=== PATIENT | female | born 1985 | race African-American/Black ===

== ENCOUNTER 2016-07-10 12:30 | Inpatient (IN) | payer MEDICAID, OTHER ==
[~2016-07-10] VITALS: Ht 170.2 cm; Wt 92.6 kg
[~2016-07-10 12:30] MED LIST: LEVE-5 PO
[2016-07-10 12:45] VITALS: Ht 170.2 cm; Wt 92.6 kg
[2016-07-10 12:46] VITALS: BP 130/62; PULSE 127; RESP 19
[2016-07-10] MEDS ORDERED: AL HYDROX/MG HYDROX/SIMETH 30 ML CUP PO ONE (13:00)
[2016-07-10 13:25] LABS: ADD SCAN DIFF NO
[2016-07-10 13:38] LABS: BASOPHIL # 0.1 10^3/ul (0.0-0.1); BASOPHILS % 0.5 % (0.0-2.0); EOSINOPHILS # 1.2 10^3/ul (0.0-0.5); EOSINOPHILS % 7.5 % (0.0-7.0); HEMATOCRIT 36.1 % (37.0-47.0); HEMOGLOBIN 11.8 g/dl (12.0-16.0); LYMPHOCYTES # 1.9 10^3/ul (0.8-2.9); LYMPHOCYTES % 12.4 % (15.0-51.0); MEAN CORPUSCULAR HEMOGLOBIN 28.9 pg (29.0-33.0); MEAN CORPUSCULAR HGB CONC 32.7 g/dl (32.0-37.0); MEAN CORPUSCULAR VOLUME 88.3 fl (82.0-101.0); MEAN PLATELET VOLUME 11.8 fl (7.4-10.4); MONOCYTE # 0.8 10^3/ul (0.3-0.9); MONOCYTES % 5.1 % (0.0-11.0); NEUTROPHIL # 11.3 10^3/ul (1.6-7.5); NEUTROPHILS % 74.1 % (39.0-77.0); PLATELET COUNT 225 10^3/UL (140-415); RED BLOOD COUNT 4.09 10^6/ul (4.20-5.40); WHITE BLOOD COUNT 15.3 10^3/ul (4.8-10.8)
[2016-07-10 14:03] LABS: ADD UMIC YES; URINE COLOR YELLOW (YELLOW)
[2016-07-10 14:04] LABS: URINE BILIRUBIN (Dip) 1+ (NEGATIVE); URINE BLOOD (Dip) TRACE (NEGATIVE); URINE GLUCOSE (Dip) NEGATIVE (NEGATIVE); URINE KETONES (Dip) NEGATIVE (NEGATIVE); URINE LEUKOCYTE ESTERASE (Dip) 2+ (NEGATIVE); URINE NITRITE (Dip) NEGATIVE (NEGATIVE); URINE TOTAL PROTEIN (Dip) 1+ (NEGATIVE); URINE UROBILINOGEN (Dip) 0.2 E.U./dL (0.1-1.0)
[2016-07-10 14:17] LABS: BACTERIA,URINE MODERATE; ICTOTEST NEGATIVE (NEGATIVE)
[2016-07-10 14:20] LABS: ALBUMIN 3.5 g/dl (3.3-4.9); ALBUMIN/GLOBULIN RATIO 0.94; BILIRUBIN,INDIRECT 0.4 mg/dl (0-1.1); BILIRUBIN,TOTAL 0.4 mg/dl (0.2-1.3); CALCIUM 9.3 mg/dl (8.4-10.2); CREATININE 0.57 mg/dl (0.44-1.00); POTASSIUM 3.9 mmol/L (3.5-5.1); TOTAL PROTEIN 7.2 g/dl (6.1-8.1)
--- NOTE | 2016-07-10 14:26 | RADRPT ---
PROCEDURE: OB ultrasound for biophysical profile CLINICAL INDICATION: Biophysical profile. . TECHNIQUE: Multiple sonographic images of the pelvis were obtained. Transabdominal view of the gr avid uterus are available for review. The images were reviewed on a PACS workstation. COMPARISON: None FINDINGS: Single intrauterine gestation. Presentation: Cephalic. Partially visualized placenta: Anterior. breathing movement = 2/2 tone = 2/2 motion = 2/2 BREANNE = 2/2 BREANNE = 15.7 cm heart rate: 132 beats per minute IMPRESSION: Single intrauterine gestation. Biophysical profile 11/04 RPTAT: AADD .Lukasz Calzada MD, MD Date Time Electronically viewed and signed by .Lukasz Calzada MD, on 07/10/2016 14:26 .B/
--- NOTE | 2016-07-10 14:28 | RADRPT ---
PROCEDURE: Obstetrical ultrasound CLINICAL INDICATION: , abdominal pain TECHNIQUE: Love-scale sonographic images of the cervix. Transvaginal scanning was performed. COMPARISON: None. FINDINGS: Funneling of the internal cervical os; cervical length of 0.99 cm as visualized transvaginally. IMPRESSION: Funneling of the internal cervical os; cervical length of 0.99 cm as visualized transvaginally. RPTAT: AADD .Lukasz Calzada MD, MD Date Time Electronically viewed and signed by .Lukasz Calzada MD, on 07/10/2016 14:28 .B/
[2016-07-10] MEDS ORDERED: MAGNESIUM SULFATE 20 GM/500 ML 500 ML IV SCH (14:57)
[2016-07-10] MEDS ORDERED: MAGNESIUM SULFATE 4 GM/100 ML 100 ML IV ONE (15:00)
[2016-07-10] MEDS ORDERED: MAGNESIUM SULFATE 4 GM/100 ML 100 ML ONE (15:02)
[2016-07-10] MEDS: LACTATED RINGER'S 1,000 ML IV SCH (15:30)
--- NOTE | 2016-07-10 15:52 | RADRPT ---
PROCEDURE: US OB. CLINICAL INDICATION: Size and dates TECHNIQUE: Multiple sonographic images of the pelvis and gravid uterus were obtained. The images were reviewed on a PACS workstation. COMPARISON: 07/10/16 FINDINGS: There is a single viable intrauterine gestation. Cardiac activity is present with 129 beats per min gurmeet. There is a vertex presentation. The placenta is anterior. There is no evidence for an abruption or placenta previa. There is a normal amount of amniotic fluid with an BREANNE = 15.7 cm. Measurements were made in order to determine age. The results are as follows: BPD =8.7 cm HC =31.3 cm AC =32.2 cm FL =6.9 cm Estimated gestational age of approximately 35 weeks and 3 days based on ultrasound measurements. Clinical age: 33 weeks and 1 day. The estimated date of delivery is 08/11/16, based on ultrasound measurements. The EFW = 2752 g, >97%, based on LMP age. RPTAT: AA IMPRESSION: Single viable intrauterine gestation of approximately 35 weeks and 3 days based on ultrasound measu rements. Larger than clinical age by 2 weeks. .Miles Mandel MD, Date Time Electronically viewed and signed by .Miles Mandel MD, on 07/10/2016 15:51 .S/
[2016-07-10] MEDS: BETAMET NA PHOS/AC(6 MG/ML) 5ML INJ IM SCH (16:48)
[2016-07-10] MEDS ORDERED: MEPERIDINE 25 MG INJ ONE (17:31)
[2016-07-10] MEDS: MEPERIDINE 25 MG INJ IV PRN ×2 (17:44→22:12)
[2016-07-10] MEDS ORDERED: ONDANSETRON 4 MG INJ IV PRN (18:00)
--- NOTE | 2016-07-10 18:35 | RADRPT ---
PROCEDURE: US Abdomen (right upper quadrant). CLINICAL INDICATION: Right upper quadrant abdomen pain. TECHNIQUE: Multiple real-time longitudinal and transverse images of the right upper quadrant of th e abdomen were acquired utilizing a curved array transducer. Images were reviewed on a high-resoluti on PACS workstation. COMPARISON: None FINDINGS: The liver is normal in size and echogenicity. There is no focal hepatic lesion. Gallstones are present in the gallbladder. There is no gallbladder wall thickening and there is no fluid around the gallbladder. The bile ducts are normal with the common bile duct measuring 5.7 mm in diameter. The pancreas appears enlarged. The visualized portions of the pancreas are otherwise unremarkable w ith obscuration of the tail of the pancreas. No free fluid is present. The right kidney measures 8.6 cm. There is normal echogenicity of the right kidney. There is no p erinephric fluid collection. No hydronephrosis, mass, or calculus is seen. IMPRESSION: 1. Gallstones in the gallbladder. No evidence of cholecystitis. 2. Enlarged pancreas. This may indicate pancreatitis. Clinical correlation advised. 3. Otherwise normal right upper quadrant abdomen ultrasound. RPTAT: QQ .Jeison Cross MD, MD Date Time Electronically viewed and signed by .Jeison Cross MD, on 07/10/2016 18:35 .R/
[2016-07-10] MEDS ORDERED: LEVETIRACETAM 750 MG TAB PO SCH (21:00)
[2016-07-11] MEDS: LACTATED RINGER'S 1,000 ML IV SCH ×4 (00:13→21:05)
[2016-07-11] MEDS: MAGNESIUM SULFATE 20 GM/500 ML 500 ML IV SCH ×3 (00:15→18:39)
[2016-07-11] MEDS: MEPERIDINE 25 MG INJ IV PRN ×2 (03:23→18:30)
[2016-07-11] MEDS: MULTIVIT/MIN/FOLATE/IRON/PREN TAB PO SCH (09:08)
[2016-07-11] MEDS: FERROUS SULFATE (EC) 325 MG TAB PO SCH (09:08)
[2016-07-11] MEDS: LEVETIRACETAM 750 MG TAB PO SCH ×2 (09:34→21:05)
[2016-07-11] MEDS: DOCUSATE SODIUM 100 MG CAP PO SCH (09:34)
[2016-07-11 10:19] LABS: ALBUMIN 3.7 g/dl (3.3-4.9); ALBUMIN/GLOBULIN RATIO 1.02; BILIRUBIN,INDIRECT 0.1 mg/dl (0-1.1); BILIRUBIN,TOTAL 0.1 mg/dl (0.2-1.3); CALCIUM 7.5 mg/dl (8.4-10.2); CREATININE 0.56 mg/dl (0.44-1.00); POTASSIUM 4.6 mmol/L (3.5-5.1); TOTAL PROTEIN 7.3 g/dl (6.1-8.1)
--- NOTE | 2016-07-11 14:01 | PERINOTE ---
Date/Time of Note Date/Time of Note DATE: 07/11/16 TIME: 13:49 Assessment/Recommendations Assessment: labor Other Assessments Gallstone pancreatitis Short cervix Seizure disorder IUP with decreased heart rate variability, likely due to Magnesium use Recommendations: Would continue this patient NPO until seen by general surgery and then until the stone in the duct has passed. Could then slowly increase diet and D/C home when able to eat. --If the patient is NPO for more than 5 days, would consider hyperalimentation due to state --Would continue Keppra for seizure disease --If discharged home would place the patient on modified bedrest due to the short cervix OB Subjective Free Text/Dictaton Patient admitted for abdominal pain. Evaluation reveals contractions with a short cervix. Patient also with gallstones and elevated amylase and lipase, consistent with gallstone pancreatitis. Patient gives a history of a seizure disorder on Keppra. She states that the last seizure was earlier this year. HD# 2 IUP @ 33W2D Complaints/Overnight events Pain is decreased. Amylase is lower on repeat determination. Current Medications Current Medications Lactated Ringer's (Lr) 1,000 ml @ 62.5 mls/hr Q16H IV Last administered on 00:22; Admin Dose 62.5 MLS/HR; Start 07/10/16 at 14:57 Betamethasone Acet/Betameth SodPhos (Celestone Soluspan) 12 mg Q24H IM Last administered on 07/10/16 16:48; Admin Dose 12 MG; Start 07/10/16 at 15:00; Stop 07/11/16 at 15:01 Prenat Multivit/ Rainbow/Iron/Folic Ac ( S) 1 tab DAILY PO Last administered on 07/11/16 09:08; Admin Dose 1 TAB; Start 07/11/16 at 09:00 Ferrous Sulfate (Ferrous Sulfate (Ec)) 325 mg DAILY PO Last administered on 09:08; Admin Dose 325 MG; Start 07/11/16 at 09:00 Docusate Sodium (Colace) 100 mg DAILY PO Last administered on 07/11/16 09:34; Admin Dose 100 MG; Start 07/11/16 at 09:00 Meperidine HCl (Demerol) 25 mg Q4H PRN IV PAIN Last administered on 07/11/16 03:23; Admin Dose 25 MG; Start 07/10/16 at 17:30 Ondansetron HCl 4 mg 4 mg Q6H PRN IV NAUSEA AND/OR VOMITING Last administered on 07/10/16 18:15; Admin Dose 4 MG; Start 07/10/16 at 18:00 Magnesium Sulfate (Magnesium Sulfate 20 Gm/500 ml) 500 ml @ 62.5 mls/hr Q8H IV Last administered on 07/11/16 09:13; Admin Dose 62.5 MLS/HR; Start 07/11/16 at 00:04 Levetiracetam (Keppra) 1,500 mg BID PO Last administered on 07/11/16 09:34; Admin Dose 1,500 MG; Start 07/11/16 at 09:00 Past Medical History Medical History: other (Seizure Disorder) Surgical History: no surgical history 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 No loss of fluid or blood vaginally. No dysuria) OB Admission Exam Physical Exam Vitals: Vital Signs Date Time Temp Pulse Resp B/P Pulse Ox O2 Delivery O2 Flow Rate FiO2 07/10/16 12:46 98.0 127 19 130/62 99 Room Air 07/11/16 120 135/65 Heart: Rhythm Normal Lungs: Clear Abdomen: WNL Heart Rate: 120's Accelerations: Accelerations Present Decelerations: No Decelerations Varibility: Minimum Last 72 hours Lab Results CBC & BMP 07/10/16 12:35 07/10/16 13:02 07/11/16 05:39 Liver Function Test 07/10/16 12:35 07/11/16 05:39 Alanine Aminotransferase (ALT/SGPT) 21 34 Albumin 3.5 3.7 Alkaline Phosphatase 95 135 H Aspartate Amino Transf (AST/SGOT) 32 93 H Direct Bilirubin 0.00 0.00 Total Protein 7.2 7.3 Magnesium Level Test 07/10/16 19:40 07/11/16 00:30 07/11/16 05:39 07/11/16 09:30 Magnesium Level 5.0 H 5.9 *H 6.9 *H 6.8 *H Test 07/11/16 11:54 Magnesium Level 6.7 *H Ultrasound Results Cervical Length 1cm by transvaginal ultrasound. I have reviewed the images and concur SONIDO DWYER MD Jul 11, 2016 14:00
--- NOTE | 2016-07-11 15:01 | HP ---
DATE OF ADMISSION: 07/10/2016 CHIEF COMPLAINT: Epigastric pain. HISTORY: A 31-year-old female, 1, para 0, with an estimated date of delivery of 08/27/2016, at 33+ weeks' gestation, who presented with complaints of epigastric pain. PAST MEDICAL HISTORY: Epilepsy. PAST SURGICAL HISTORY: Unremarkable. ALLERGIES: NO KNOWN ALLERGIES. FAMILY HISTORY: Hypertension. PHYSICAL EXAMINATION: VITAL SIGNS: Patient is afebrile. Vital signs stable. HEAD, NECK AND CHEST: Examination within normal limits. ABDOMEN: Soft, gravid. Slight tenderness in the epigastric area. EXTREMITIES: Within normal limits. NEUROLOGIC: Within normal limits. HOSPITAL COURSE: The patient had a workup, including blood work, obstetrical ultrasound and abdominal ultrasound. The results of the blood work revealed amylase and lipase to be elevated. Obstetrical ultrasound revealed a short cervix. Abdominal ultrasound revealed enlargement of the pancreas and gallstones. IMPRESSION: 1. at 33+ weeks. 2. Short cervix. 3. Threatened labor. 4. Gallstone pancreatitis. PLAN: Admit. N.p.o., IV hydration, intravenous magnesium sulfate for tocolysis and intramuscular betamethasone for lung maturity. Surgical consult. Gastroenterology consult. Perinatology consult. Neonatology consult. Dictated By: LANNY DE LUNA/GAMA Conf#: [id number] DID#: [id number] MTDD
--- NOTE | 2016-07-11 15:01 | CONS ---
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 She is a 31-year-old -[place], 1, para 0. She had prenat al care at [facility] with Dr. Gillette and denies history of significant problems durin g . Her labs are unremarkable. She has been given 1 dose of betamethasone and the second one is due today. Estimated weight is 2720 grams. I have spoken to the mother and explained to her about prematurity with 33 to 34 weeks' gestational age, respiratory distress, oxygen therapy and respiratory support with bubble CPAP and ventilator, a pnea of prematurity, jaundice and phototherapy, feeding problems and survival greater than 99%, and general procedures done in NICU, and general treatment plan. I have also discussed about delayed mi lestones and risk for long-term neurodevelopmental problems in view of prematurity and answered moth er's questions and addressed her concerns. Mom seems to understand the problems with prematurity an d had appropriate questions. I thank you very much for allowing me to take part in the care of this patient. We will attend the delivery and follow the baby as needed. Dictated By: DIO JONES/NTS Conf#: [id number] DID#: [id number]
[2016-07-11] MEDS ORDERED: SOD CHLORIDE 0.9% 1,000 ML IV ONE (16:00)
[2016-07-11] MEDS: BETAMET NA PHOS/AC(6 MG/ML) 5ML INJ IM SCH (17:00)
--- NOTE | 2016-07-11 17:06 | CONS ---
[facility] INITIAL INPATIENT CONSULTATION NOTE DATE OF CONSULTATION: 07/11/2016 PLACE OF SERVICE: [facility] labor and delivery, second floor. ASSESSMENT AND PLAN: A very pleasant 31-year-old young lady with her first child, presenting with a history of seizures as well as a comorbidity of BMI of 32, who now has gallstone pancreatitis which was on a moderate to severe grade on the very chemistries, but has shown significant improvement over a 24 hour period with bowel rest. This is all very encouraging and at the moment, I do not see any indication for acute surgical intervention. I have suggested that we do an MRCP to further evaluate her intrahepatic biliary tree and if she has evidence for retained stones within the common bile duct, she may need consideration for ERCP. I also strongly suggest that we involve our gastroenterology colleagues to complete the team and to watch the patient carefully in house until her symptoms have abated and her values and labs have normalized. Once the patient is able to eat well and has no other further pain and we have demonstrated that we have very low likelihood to no likelihood of having cholelithiasis, then the patient may be discharged home. I also recommended that the patient undergo an elective laparoscopic cholecystectomy in 1 to 2 months after the of her child to decrease her risk of recurrent gallstone pancreatitis from approximately 30% in the next 6 months to normal risk almost 0% after this operation. I explained all this to the patient as well as her significant other and her mother, and answered all their questions to the best of my ability. The patient and family appeared to understand and agree with the plan. With above assessment, I recommend the followin. Continue current care with n.p.o. status and careful monitoring in house. 2. Strict I's and O's. 3. Check labs in a.m. 4. MRCP. 5. Gastroenterology consultation. Thank you again for allowing us to participate in the care of this very pleasant lady and her wonderful family. If there are any questions, please feel free to contact me at [phone]. TOTAL VISIT TIME: Was 45 minutes, of which more than half was spent in face-to- face discussion with the patient, discussions with his family, as well as coordination of care between multiple physicians and providers. UPDATED CLINICAL SUMMARY: Patient is a very pleasant 31-year-old lady on her first and with comorbidity of BMI 32, presenting with severe gallstone pancreatitis. COMORBIDITIES: 1. BMI of 32.0. 2. with her first child approximately 33 weeks. 3. Epilepsy. 4. Family history of hypertension. 5. Short cervix DATE OF ADMISSION: 07/10/2016 HISTORY OF PRESENT ILLNESS: The patient is a very pleasant 31-year-old lady with above-mentioned comorbidities. We were kindly asked to consult regarding management of gallstone pancreatitis. The patient started developing pain 2 days ago and she was admitted through the obstetric department at [facility] with abdominal pain that was 10/10 at its worst, and associated with some nausea and vomiting yesterday, but none today. LABORATORY VALUES: Showed a white blood cell count of 15.3 with a platelet count 225 and initial amylase 7810 and lipase was 69,733. The rest of the electrolytes were normal. Albumin was 3.5. She reported no episodes such as this in the past and no prior history of gallbladder disease or other issues with pancreatitis. Otherwise, the has been going well and no issues so far. ALLERGIES: NO KNOWN DRUG ALLERGIES. HOME MEDICATIONS: 1. vitamins. 2. Keppra. SOCIAL HISTORY: The patient lives with her family and does not report any smoking, drinking, or intravenous drug use. FAMILY HISTORY: Other than hypertension there are no other major medical, surgical or oncologic problems in the family. REVIEW OF SYSTEMS: Other than the above-mentioned, there are no other pertinent positives or pertinent negatives in a complete 14-point review of systems. PHYSICAL EXAMINATION: GENERAL: The patient appears to be a very pleasant -Slov[place] lady of non - descent, appearing stated age, lying in bed, obviously , but otherwise in no acute distress. BMI is 32. VITAL SIGNS: Temperature 98.0, blood pressure 130/62, pulse 127, respiratory rate 19, pulse oximetry 99% on room air. HEENT: Normocephalic and atraumatic. Extraocular muscles and hearing are grossly intact bilaterally and symmetrically. Sclerae are nonicteric. Oral cavity is clear; oral mucosa appeared to be pink and moist. Dentition: fair. NECK: Supple. There is no lymphadenopathy or JVD. There is no submental, submandibular or supraclavicular lymphadenopathy. CHEST: Rises symmetrically with each breath; patient is breathing comfortably. There are no audible wheezes, rales or rhonchi on the gross exam. HEART: Pulse is regular and palpable on the right wrist. Capillary refill was normal. Carotid pulses are palpable bilaterally and symmetrically in the neck. EXTREMITIES: Lower extremities contain no pitting edema around the ankles bilaterally and symmetrically. ABDOMEN: Protuberant with . Otherwise, it is soft and minimally tender to palpation in the upper quadrants, especially in the mid upper and right upper. There are no peritoneal signs or guarding and no evidence of organomegaly, caput medusae, engorged subcutaneous veins, or evidence of ascites. SKIN: Appears to be pink and feels warm to touch. NEUROLOGIC: Awake, alert, and follows commands appropriately. LABORATORY DATA: As above. IMAGING: The patient has had abdominal ultrasound that demonstrated gallstones in the gallbladder without evidence of cholecystitis. The pancreas appeared to be enlarged. Otherwise, the study was normal. She also had her routine obstetric related ultrasounds. Dictated By: KAREN LUJAN/GAMA Conf#: [id number] DID#: [id number] TALIA
--- NOTE | 2016-07-11 21:50 | RADRPT ---
PROCEDURE: MRCP. CLINICAL INDICATION: Abdominal pain, gallstone pancreatitis, 33 weeks TECHNIQUE: MRCP was performed on the a high-resolution, high Marichuy field strength scanner. Patien t was examined without contrast. The patient was unable to finish the examination due to severe santana n. COMPARISON: Right upper quadrant abdominal ultrasound 07/10/2016 FINDINGS: There is cholelithiasis with multiple gallstones in the gallbladder. The biliary tree is not dilated . No intrahepatic nor extrahepatic biliary dilatation is present. No filling defect or choledocholi thiasis is seen. There is no stricture or obstruction seen in the extrahepatic bile duct. The pancre atic duct, as visualized, is unremarkable. There is a gravid uterus. Subcutaneous edema posteriorly . 2 oval structures demonstrating bright increased T2 signal in the posterior segment of the right l obe of the liver likely cysts the larger 1.1 cm. Mild right hydronephrosis and minimal left hydronep hrosis. There is appearance of mild nonspecific left perinephric fluid seen and minimal perisplenic appearing fluid. IMPRESSION: Cholelithiasis. No choledocholithiasis seen. Gravid uterus. Mild right hydronephrosis and minimal l eft hydronephrosis. Nonspecific mild left perinephric fluid minimal perisplenic appearing fluid. Pl ease see above. RPTAT: HJES .Tommy Martinez MD, Date Time Electronically viewed and signed by .Tommy Martinez MD, on 07/11/2016 21:50 .S/
[2016-07-12] MEDS: MEPERIDINE 25 MG INJ IV PRN ×2 (04:22→09:13)
[2016-07-12] MEDS: MAGNESIUM SULFATE 20 GM/500 ML 500 ML IV SCH (04:25)
[2016-07-12 07:10] LABS: ADD SCAN DIFF NO
[2016-07-12 07:11] LABS: BASOPHILS % 0.1 % (0.0-2.0); EOSINOPHILS % 0.1 % (0.0-7.0); HEMATOCRIT 31.1 % (37.0-47.0); HEMOGLOBIN 10.2 g/dl (12.0-16.0); LYMPHOCYTES # 1.2 10^3/ul (0.8-2.9); LYMPHOCYTES % 6.5 % (15.0-51.0); MEAN CORPUSCULAR HEMOGLOBIN 29.2 pg (29.0-33.0); MEAN CORPUSCULAR HGB CONC 32.8 g/dl (32.0-37.0); MEAN CORPUSCULAR VOLUME 89.1 fl (82.0-101.0); MEAN PLATELET VOLUME 11.9 fl (7.4-10.4); MONOCYTE # 0.8 10^3/ul (0.3-0.9); NEUTROPHIL # 16.7 10^3/ul (1.6-7.5); NEUTROPHILS % 88.5 % (39.0-77.0); PLATELET COUNT 216 10^3/UL (140-415); RED BLOOD COUNT 3.49 10^6/ul (4.20-5.40); RED CELL DISTRIBUTION WIDTH 14.5 % (11.5-14.5); WHITE BLOOD COUNT 18.9 10^3/ul (4.8-10.8)
[2016-07-12 07:40] LABS: INR 1.05; PROTIME 13.7 Sec (12.2-14.2); PT RATIO 1.1
[2016-07-12 07:41] LABS: PARTIAL THROMBOPLASTIN TIME 27.1 Sec (25.0-35.0)
[2016-07-12 07:49] LABS: BILIRUBIN,INDIRECT 0.2 mg/dl (0-1.1); BILIRUBIN,TOTAL 0.2 mg/dl (0.2-1.3); CREATININE 0.55 mg/dl (0.44-1.00)
[2016-07-12 07:50] LABS: ALBUMIN/GLOBULIN RATIO 0.96; PHOSPHORUS 4.8 mg/dl (2.5-4.9); TOTAL PROTEIN 6.1 g/dl (6.1-8.1)
[2016-07-12 07:51] LABS: CALCIUM 6.9 mg/dl (8.4-10.2)
[2016-07-12 08:24] LABS: AMYLASE 667 U/L (11-123)
[2016-07-12] MEDS: MULTIVIT/MIN/FOLATE/IRON/PREN TAB PO SCH (08:54)
[2016-07-12] MEDS: FERROUS SULFATE (EC) 325 MG TAB PO SCH (08:54)
[2016-07-12] MEDS: LEVETIRACETAM 750 MG TAB PO SCH ×2 (08:54→22:51)
[2016-07-12] MEDS: DOCUSATE SODIUM 100 MG CAP PO SCH (08:55)
[2016-07-12] MEDS ORDERED: CEFTRIAXONE 1 GM INJ IVPB SCH (09:00)
[2016-07-12] MEDS: 1/2 NS + KCL 20 MEQ 1,000 ML IV SCH ×2 (09:31→22:54)
[2016-07-12] MEDS: CEFTRIAXONE 1 GM/NS 50 ML IVPB SCH (10:02)
[2016-07-12] MEDS ORDERED: MEPERIDINE 25 MG INJ IV ONE (11:00)
[2016-07-12] MEDS ORDERED: AMPICILLIN 2 GM/NS (PMX) 100 ML IVPB ONE (12:00)
[2016-07-12] MEDS ORDERED: AMPICILLIN 2 GM/NS (PMX) 100 ML ONE (12:03)
[2016-07-12] MEDS ORDERED: ERYTHROMYCIN LACTOBIONATE 500 MG in SOD CHLORIDE 0.9% 100 ML IVPB ONE (12:30)
[2016-07-12] MEDS ORDERED: LIDOCAINE 1% (MPF) 30 ML INJ ONE (12:42)
[2016-07-12] MEDS ORDERED: MISOPROSTOL 200 MCG TAB PR PRN ×2 (13:00→17:00)
[2016-07-12] MEDS ORDERED: OXYTOCIN 30 UNITS/LR 500 ML IV SCH (13:00)
[2016-07-12] MEDS ORDERED: IBUPROFEN 600 MG TAB PO PRN (13:00)
[2016-07-12] MEDS ORDERED: ACETAMINOPHEN/CODEINE #3 TAB PO PRN (13:00)
[2016-07-12] MEDS ORDERED: LIDOCAINE 1% (MPF) 30 ML INJ INJ PRN (13:00)
[2016-07-12] MEDS ORDERED: OXYTOCIN 30 UNITS/LR 500 ML IV PRN ×2 (13:00→17:00)
[2016-07-12] MEDS ORDERED: CARBOPROST 250 MCG INJ IM PRN ×2 (13:00→17:00)
--- NOTE | 2016-07-12 13:02 | RADRPT ---
PROCEDURE: US biophysical profile. CLINICAL INDICATION: labor TECHNIQUE: Multiple sonographic images of the uterus were obtained. The images were revi ewed on a PACS workstation. COMPARISON: No prior studies are available for comparison. FINDINGS: There is a single live intrauterine gestation. heart rate is 156 beats per minute. The position is cephalic. The placenta is anterior grade II. The BREANNE is 7.1 cm. (Normal = 5-20 cm.) IMPRESSION: 1. The BREANNE = 7.1 cm RPTAT: UU .Gideon Chung MD, Date Time Electronically viewed and signed by .Gideon Chung MD, on 07/12/2016 13:01 .Dang/
[2016-07-12] MEDS: OXYTOCIN 30 UNITS/LR 500 ML IV SCH ×2 (13:24→13:27)
[2016-07-12] MEDS ORDERED: BUTORPHANOL 2 MG INJ ONE (13:37)
[2016-07-12] MEDS ORDERED: BUTORPHANOL 2 MG INJ IV ONE (13:40)
--- NOTE | 2016-07-12 15:13 | PN ---
Date/Time of Note Date/Time of Note DATE: 07/12/16 TIME: 15:02 Assessment/Plan Lines/Catheters IV [facility] Type [facility] Peripheral IV Assessment/Plan Assessment/Plan [facility] Progress Note Date of Service: 07/12/16 Today's Impression & Plan: Overall doing well post delivery of her baby girl (premature, but reportedly doing well); pancreatitis much improved; clinically much improved; no indication for acute surgical intervention. With above assessment, I've recommended the following for today: 1. Agree with sips of water and ice chips 2. If continues to feel well and chemical pancreatitis continues to improve, would be ok to start clear liquid diet tomorrow 3. Lap maeve in 1-2 months Thank you again for your great care of this very pleasant patient and wonderful family. If there are any questions, please feel free to call me at [phone]. TOTAL VISIT TIME: 20 minutes of which more than half was spent in [id number] discussion with the patient, possibly including family, as well as coordination of care between multiple physicians and providers. Disclaimer: Inadvertent spelling or grammatical errors are likely due to EHR/ dictation software use and do not reflect on the overall quality of patient care. Updated Clinical Summary: Patient is a very pleasant 31-year-old lady on her first and with comorbidity of BMI 32, presenting with severe gallstone pancreatitis. S/p ( early) of her baby girl around 1 pm 07/12/16. COMORBIDITIES: 1. BMI of 32.0. 2. with her first child approximately 33 weeks. 3. Epilepsy. 4. Family history of hypertension. 5. Short cervix 6. S/p (early) of her baby girl around 1 pm 07/12/16. Subjective: No major events or complaints except for above; no abd pain and under control with medications; no n/v/d; no sob or cp; + flatus; + BM and normal; + activity Objective: Vitals: See below Exam: GENERAL: On exam, the patient was laying in bed and appeared to be comfortable and in no acute distress. ABDOMEN: Soft, nontender and nondistended. There are no peritoneal signs or guarding. SKIN: Skin appears to be pink and feels warm to touch. NEUROLOGIC: Patient is awake, alert, and follows commands appropriately. Exam/Review of Systems Vital Signs Vitals Vital Signs Date Time Temp Pulse Resp B/P Pulse Ox O2 Delivery O2 Flow Rate FiO2 07/10/16 12:46 98.0 127 19 130/62 99 Room Air Intake and Output 07/11/16 07/11/16 07/12/16 15:00 23:00 07:00 Intake Total 525 ml 1425 ml 1125 ml Output Total 100 ml 400 ml 1000 ml Balance 425 ml 1025 ml 125 ml Results Result Diagram: 07/12/16 0639 07/12/16 0639 KAREN AUGUSTINE M.D. Jul 12, 2016 15:13
--- NOTE | 2016-07-12 16:30 | LDN ---
Date/Time of Note Date/Time of Note DATE: 07/12/16 TIME: 16:24 Delivery Summary Patient progressed in labor despite being on IV magnesium sulfate. Patient had . Weeks of Gestation 33 weeks and 2 days. Placenta Delivered: Spontaneously Meconium: none Episiotomy: No Perineal laceration: 2 Laceration repair: Vaginal laceration and second degree perineal laceration repaired with 3-0 Vicryl. Anesthesia type: Local Estimated blood loss: 400 Sponge & Needle done & correct: Yes All needle counts correct: Yes Any foreign bodies felt in the: No Problems: Delivery Information Sex Infant Sex: female Apgars 1 Minute: 8 5 Minute: 9 Suctioning Nose & mouth suctioned at sonia: Yes Delee suction performed: No Umbilical Cord Umbilical cord with: 3 Vessels Cord presentations: no nuchal cord Cord Blood was obtained: Yes Mother & Baby Disposition Disposition Mom transferred to: Other () Baby to NICU: Yes LANNY CARCAMO MD Jul 12, 2016 16:30
[2016-07-12] MEDS: LACTATED RINGER'S 1,000 ML IV* SCH (16:54)
[2016-07-12] MEDS ORDERED: DIPHENHYDRAMINE 50 MG INJ IV PRN (17:00)
[2016-07-12] MEDS ORDERED: DIBUCAINE 1% 30 GM OINT PR PRN (17:00)
[2016-07-12] MEDS ORDERED: BENZOCAINE 20% 56 ML SPRAY TOP PRN (17:00)
[2016-07-12] MEDS ORDERED: METHYLERGONOVINE 0.2 MG INJ IM PRN (17:00)
[2016-07-12] MEDS ORDERED: WITCH HAZEL/GLYCERIN PAD PR PRN (17:00)
[2016-07-12 17:49] VITALS: BP 102/54; PULSE 102; RESP 20
[2016-07-12 20:00] VITALS: BP 115/56; PULSE 101; RESP 18
[2016-07-12 23:00] VITALS: BP 129/59; PULSE 86; RESP 18
[2016-07-13] MEDS: LACTATED RINGER'S 1,000 ML IV* SCH (00:54)
[2016-07-13 04:10] VITALS: BP 115/61; PULSE 89; RESP 17
[2016-07-13] MEDS: 1/2 NS + KCL 20 MEQ 1,000 ML IV SCH ×3 (05:00→19:18)
[2016-07-13] MEDS: MEPERIDINE 25 MG INJ IV PRN ×2 (05:09→16:06)
[2016-07-13 07:17] LABS: ADD SCAN DIFF NO
[2016-07-13 07:19] LABS: BASOPHILS % 0.2 % (0.0-2.0); HEMATOCRIT 27.5 % (37.0-47.0); LYMPHOCYTES # 1.7 10^3/ul (0.8-2.9); LYMPHOCYTES % 8.4 % (15.0-51.0); MEAN CORPUSCULAR HEMOGLOBIN 29.1 pg (29.0-33.0); MEAN CORPUSCULAR HGB CONC 32.7 g/dl (32.0-37.0); MONOCYTE # 1.4 10^3/ul (0.3-0.9); NEUTROPHIL # 17.2 10^3/ul (1.6-7.5); NEUTROPHILS % 83.7 % (39.0-77.0); PLATELET COUNT 190 10^3/UL (140-415); RED BLOOD COUNT 3.09 10^6/ul (4.20-5.40); RED CELL DISTRIBUTION WIDTH 14.7 % (11.5-14.5); WHITE BLOOD COUNT 20.5 10^3/ul (4.8-10.8)
[2016-07-13 07:33] LABS: ALBUMIN 2.6 g/dl (3.3-4.9); INR 1.01; POTASSIUM 3.9 mmol/L (3.5-5.1); PROTIME 13.3 Sec (12.2-14.2)
[2016-07-13 07:34] LABS: PARTIAL THROMBOPLASTIN TIME 29.7 Sec (25.0-35.0)
[2016-07-13 07:35] LABS: CREATININE 0.52 mg/dl (0.44-1.00)
[2016-07-13 07:36] LABS: ALBUMIN/GLOBULIN RATIO 0.86; BILIRUBIN,INDIRECT 0.2 mg/dl (0-1.1); BILIRUBIN,TOTAL 0.2 mg/dl (0.2-1.3); CALCIUM 8.1 mg/dl (8.4-10.2); PHOSPHORUS 2.9 mg/dl (2.5-4.9); TOTAL PROTEIN 5.6 g/dl (6.1-8.1)
[2016-07-13 08:00] VITALS: BP 104/50; PULSE 88; RESP 20
[2016-07-13] MEDS: LEVETIRACETAM 750 MG TAB PO SCH ×2 (08:48→21:02)
[2016-07-13] MEDS: CEFTRIAXONE 1 GM/NS 50 ML IVPB SCH (09:03)
[2016-07-13 13:55] VITALS: BP 115/56; PULSE 85; RESP 20
[2016-07-13 16:08] VITALS: BP 113/59; PULSE 24
[2016-07-13] MEDS ORDERED: HYDROmorphONE 1 MG/ML SYG IV PRN ×2 (17:00)
--- NOTE | 2016-07-13 17:55 | QN ---
Documentation Comment ppd1 pt doing better tolerating liquid diet vss exam wnl a/p ppd1 gallstone pancreatitis continue care DONATO ROBINS MD Jul 13, 2016 17:55
[2016-07-13 19:50] VITALS: BP 115/60; PULSE 80; RESP 19
[2016-07-14] VITALS: BP 125/62; PULSE 78; RESP 19
[2016-07-14] MEDS: 1/2 NS + KCL 20 MEQ 1,000 ML IV SCH ×2 (04:58→15:28)
[2016-07-14 07:55] LABS: ADD SCAN DIFF NO
[2016-07-14 07:58] LABS: BASOPHIL # 0.1 10^3/ul (0.0-0.1); BASOPHILS % 0.4 % (0.0-2.0); EOSINOPHILS # 0.4 10^3/ul (0.0-0.5); EOSINOPHILS % 2.2 % (0.0-7.0); HEMATOCRIT 29.6 % (37.0-47.0); HEMOGLOBIN 9.7 g/dl (12.0-16.0); LYMPHOCYTES # 1.7 10^3/ul (0.8-2.9); LYMPHOCYTES % 10.8 % (15.0-51.0); MEAN CORPUSCULAR HEMOGLOBIN 29.5 pg (29.0-33.0); MEAN CORPUSCULAR HGB CONC 32.8 g/dl (32.0-37.0); MEAN PLATELET VOLUME 11.5 fl (7.4-10.4); MONOCYTES % 6.5 % (0.0-11.0); NEUTROPHIL # 12.6 10^3/ul (1.6-7.5); NEUTROPHILS % 79.4 % (39.0-77.0); PLATELET COUNT 195 10^3/UL (140-415); RED BLOOD COUNT 3.29 10^6/ul (4.20-5.40); RED CELL DISTRIBUTION WIDTH 14.6 % (11.5-14.5); WHITE BLOOD COUNT 15.9 10^3/ul (4.8-10.8)
[2016-07-14 08:00] VITALS: BP 116/55; PULSE 90; RESP 16
[2016-07-14 08:15] LABS: ALBUMIN 2.8 g/dl (3.3-4.9); ALBUMIN/GLOBULIN RATIO 0.9; BILIRUBIN,INDIRECT 0.2 mg/dl (0-1.1); BILIRUBIN,TOTAL 0.2 mg/dl (0.2-1.3); CALCIUM 8.6 mg/dl (8.4-10.2); CREATININE 0.56 mg/dl (0.44-1.00); MAGNESIUM 1.9 mg/dl (1.7-2.5); PHOSPHORUS 3.5 mg/dl (2.5-4.9); POTASSIUM 4.4 mmol/L (3.5-5.1); TOTAL PROTEIN 5.9 g/dl (6.1-8.1)
[2016-07-14 08:20] LABS: INR 0.93; PROTIME 12.5 Sec (12.2-14.2)
[2016-07-14 08:34] LABS: PARTIAL THROMBOPLASTIN TIME 28.6 Sec (25.0-35.0)
[2016-07-14] MEDS ORDERED: DIPHTH/TET/ACEL PERTUSS (ADULT) 0.5 ML VIAL IM* ONE (09:00)
[2016-07-14] MEDS: CEFTRIAXONE 1 GM/NS 50 ML IVPB SCH (09:18)
[2016-07-14] MEDS: LEVETIRACETAM 750 MG TAB PO SCH ×2 (09:19→21:21)
[2016-07-14] MEDS: LANOLIN 7 GM TUBE TOP PRN (09:20)
--- NOTE | 2016-07-14 11:34 | PN ---
Date/Time of Note Date/Time of Note DATE: 07/14/16 TIME: 11:33 Assessment/Plan Lines/Catheters IV Catheter Type (from Nrs): Peripheral IV Assessment/Plan Assessment/Plan [facility] Progress Note Date of Service: 07/14/16 Today's Impression & Plan: Overall stable and improving. WBC down and pancreatitis continues to improve; no indication for acute surgical intervention. With above assessment, I've recommended the following for today: 1. Low fat regular diet 2. Labs in am 3. Lap maeve in 1-2 months Thank you again for your great care of this very pleasant patient and wonderful family. If there are any questions, please feel free to call me at [phone]. TOTAL VISIT TIME: 20 minutes of which more than half was spent in [id number]-[id number] discussion with the patient, possibly including family, as well as coordination of care between multiple physicians and providers. Disclaimer: Inadvertent spelling or grammatical errors are likely due to EHR/ dictation software use and do not reflect on the overall quality of patient care. Updated Clinical Summary: Patient is a very pleasant 31-year-old lady on her first and with comorbidity of BMI 32, presenting with severe gallstone pancreatitis. S/p ( early) of her baby girl around 1 pm 07/12/16. COMORBIDITIES: 1. BMI of 32.0. 2. with her first child approximately 33 weeks. 3. Epilepsy. 4. Family history of hypertension. 5. Short cervix 6. S/p (early) of her baby girl around 1 pm 07/12/16. Subjective: No major events or complaints; no major abd pain and under control with medications; no n/v/d; no sob or cp; + flatus; + BM and normal; + activity; tolerated liquid diet Objective: Vitals: See below Exam: GENERAL: On exam, the patient was laying in bed and appeared to be comfortable and in no acute distress. ABDOMEN: Soft, nontender and nondistended. There are no peritoneal signs or guarding. SKIN: Skin appears to be pink and feels warm to touch. NEUROLOGIC: Patient is awake, alert, and follows commands appropriately. Exam/Review of Systems Vital Signs Vitals Vital Signs Date Time Temp Pulse Resp B/P Pulse Ox O2 Delivery O2 Flow Rate FiO2 07/14/16 08:00 98.4 90 16 116/55 Room Air 07/10/16 12:46 99 Intake and Output 07/13/16 07/13/16 07/14/16 15:00 23:00 07:00 Intake Total 300 ml 898 ml Balance 300 ml 898 ml Results Result Diagram: 07/14/16 0705 07/14/1605 KAREN AUGUSTINE M.D. Jul 14, 2016 11:34
[2016-07-14 12:30] VITALS: BP 121/58; PULSE 89; RESP 14
[2016-07-14 15:38] VITALS: BP 118/59; PULSE 89; RESP 16
[2016-07-14] MEDS: HYDROCODONE/APAP (5/325) TAB PO PRN ×2 (18:13→22:41)
--- NOTE | 2016-07-14 19:47 | QN ---
Documentation Comment Patient feels better. Afebrile VSS Continue care per Surgery. LANNY CARCAMO MD Jul 14, 2016 19:47
[2016-07-14 20:00] VITALS: BP 126/56; PULSE 101; RESP 18
[2016-07-15] MEDS: 1/2 NS + KCL 20 MEQ 1,000 ML IV SCH (01:29)
[2016-07-15 04:00] VITALS: BP 115/72; PULSE 79; RESP 18
[2016-07-15 08:00] VITALS: BP 121/73; PULSE 95; RESP 17
[2016-07-15 08:12] LABS: ADD SCAN DIFF NO
[2016-07-15 08:18] LABS: BASOPHIL # 0.1 10^3/ul (0.0-0.1); BASOPHILS % 0.4 % (0.0-2.0); EOSINOPHILS # 1.4 10^3/ul (0.0-0.5); EOSINOPHILS % 8.3 % (0.0-7.0); HEMATOCRIT 32.9 % (37.0-47.0); HEMOGLOBIN 10.6 g/dl (12.0-16.0); MEAN CORPUSCULAR HEMOGLOBIN 28.5 pg (29.0-33.0); MEAN CORPUSCULAR HGB CONC 32.2 g/dl (32.0-37.0); MEAN CORPUSCULAR VOLUME 88.4 fl (82.0-101.0); MEAN PLATELET VOLUME 11.6 fl (7.4-10.4); MONOCYTE # 0.9 10^3/ul (0.3-0.9); MONOCYTES % 5.2 % (0.0-11.0); NEUTROPHIL # 12.1 10^3/ul (1.6-7.5); NEUTROPHILS % 73.3 % (39.0-77.0); NUCLEATED RED BLOOD CELLS% 0.1 /100WBC (0.0-0.0); PLATELET COUNT 238 10^3/UL (140-415); RED BLOOD COUNT 3.72 10^6/ul (4.20-5.40); RED CELL DISTRIBUTION WIDTH 14.4 % (11.5-14.5); WHITE BLOOD COUNT 16.5 10^3/ul (4.8-10.8)
[2016-07-15 08:23] LABS: ALBUMIN 2.9 g/dl (3.3-4.9)
[2016-07-15 08:26] LABS: BILIRUBIN,INDIRECT 0.2 mg/dl (0-1.1); BILIRUBIN,TOTAL 0.2 mg/dl (0.2-1.3); CREATININE 0.56 mg/dl (0.44-1.00); INR 0.92; PROTIME 12.4 Sec (12.2-14.2); TOTAL PROTEIN 6.1 g/dl (6.1-8.1)
[2016-07-15 08:27] LABS: ALBUMIN/GLOBULIN RATIO 0.9; CALCIUM 9.3 mg/dl (8.4-10.2); PARTIAL THROMBOPLASTIN TIME 28.5 Sec (25.0-35.0); PHOSPHORUS 5.3 mg/dl (2.5-4.9)
[2016-07-15 08:28] LABS: MAGNESIUM 1.7 mg/dl (1.7-2.5)
--- NOTE | 2016-07-15 09:21 | PN ---
Date/Time of Note Date/Time of Note DATE: 07/15/16 TIME: 09:19 Assessment/Plan Lines/Catheters IV Catheter Type (from Nrsg): Peripheral IV Assessment/Plan Assessment/Plan [facility] Progress Note Date of Service: 07/15/16 Today's Impression & Plan: Overall stable and improving. WBC slightly up, but not unusual. Clinically patient looks great and tolerating low fat solid food without any further signs of ongoing pancreatitis. Ok from my standpoint to d/c when ok by other MD's and providers. No indication for acute surgical intervention. With above assessment, I've recommended the following for today: 1. Cont low fat regular diet 2. D/c when ok by other MD's and providers 3. F/u with me in 1-2 months for elective lap maeve; please provide patient with my office number: [phone] and instruct her to make an appointment to see me in 3-4 weeks Thank you again for your great care of this very pleasant patient and wonderful family. If there are any questions, please feel free to call me at [phone]. TOTAL VISIT TIME: 20 minutes of which more than half was spent in [id number] discussion with the patient, possibly including family, as well as coordination of care between multiple physicians and providers. Disclaimer: Inadvertent spelling or grammatical errors are likely due to EHR/ dictation software use and do not reflect on the overall quality of patient care. Updated Clinical Summary: Patient is a very pleasant 31-year-old lady on her first and with comorbidity of BMI 32, presenting with severe gallstone pancreatitis. S/p ( early) of her baby girl around 1 pm 07/12/16. COMORBIDITIES: 1. BMI of 32.0. 2. with her first child approximately 33 weeks. 3. Epilepsy. 4. Family history of hypertension. 5. Short cervix 6. S/p (early) of her baby girl around 1 pm 07/12/16. Subjective: No major events or complaints; no major abd pain and under control with medications; no n/v/d; no sob or cp; + flatus; + BM and normal; + activity; tolerated low fat regular diet Objective: Vitals: See below Exam: GENERAL: On exam, the patient was laying in bed and appeared to be comfortable and in no acute distress. ABDOMEN: Soft, nontender and nondistended. There are no peritoneal signs or guarding. SKIN: Skin appears to be pink and feels warm to touch. NEUROLOGIC: Patient is awake, alert, and follows commands appropriately. Exam/Review of Systems Vital Signs Vitals Vital Signs Date Time Temp Pulse Resp B/P Pulse Ox O2 Delivery O2 Flow Rate FiO2 07/15/16 04:00 98.3 79 18 115/72 Room Air Intake and Output 07/14/16 07/14/16 07/15/16 15:00 23:00 07:00 Intake Total 750 ml 400 ml 600 ml Balance 750 ml 400 ml 600 ml Results Result Diagram: 07/15/16 0745 07/15/16 0745 KAREN AUGUSTINE M.D. Jul 15, 2016 09:21
[2016-07-15] MEDS: LEVETIRACETAM 750 MG TAB PO SCH (09:23)
[2016-07-15] MEDS: CEFTRIAXONE 1 GM/NS 50 ML IVPB SCH (09:23)
[2016-07-15] MEDS: LANOLIN 7 GM TUBE TOP PRN (09:26)
[2016-07-15] MEDS: HYDROCODONE/APAP (5/325) TAB PO PRN (12:46)
--- NOTE | 2016-07-15 14:05 | DS ---
DATE OF ADMISSION: 07/10/2016 DATE OF DISCHARGE: 07/15/2016 ADMITTING DIAGNOSIS: at 32+ weeks with labor and gallstone pancreatitis. HISTORY: A 31-year-old female 1, para 0 at the time of admission, para 1 at the time of dis charge at 33+ weeks' gestation, presented with complaint of epigastric pain. Workup revealed the pa tient to have a short cervix and also gallstone pancreatitis. The patient was admitted on 7. The patient was given intravenous magnesium sulfate for tocolysis and intramuscular betamethason e was given for lung maturity. The patient was kept n.p.o. due to pancreatitis and was given intravenous hydration and antibiotics. Surgical consultation was obtained. On 07/12/2016, the deborah ent started to have more frequent contractions and went into active labor which could not be stopped with magnesium sulfate. The patient had a spontaneous vaginal delivery on 07/12/2016. During the period, the patient was followed by the surgeon. The patient's laboratory values and sym ptoms improved. The patient's diet was advanced to a low fat diet, which she was able to tolerate. On 07/15/2016, the patient was cleared by the surgeon for discharge. CONDITION ON DISCHARGE: Stable. DISCHARGE INSTRUCTIONS: 1. Diet: Low fat diet. 2. Activities: Pelvic rest. MEDICATIONS: Continue with: 1. Keppra. 2. vitamins. 3. Ferrous sulfate. FOLLOWUP: Follow up in the office in 2 weeks. Follow up with surgeon in 3 to 4 weeks. FINAL DIAGNOSES: 1. , delivered vaginally. 2. labor. 3. Cholelithiasis. 4. Gallstone pancreatitis. 5. . 6. Mother with single liveborn. Dictated By: LANNY DE LUNA/NTS Conf#: [id number] DID#: [id number]
== END 2016-07-15 17:49 | disposition home or self-care (01) | DRG 775 ==
LOC: OBT 12:30 → L-D 12:31 → OBT 14:58 → L-D 15:00 → PP1 07-12 17:02
PROVIDERS: ADMIT Obstetrics & Gynecology; ATTEND Obstetrics & Gynecology
PROC: 10E0XZZ Delivery of Products of Conception, External Approach (ICD-10-PCS; principal; 2016-07-12)
PROC: 0KQM0ZZ Repair Perineum Muscle, Open Approach (ICD-10-PCS; 2016-07-12)
PROC: 0UQGXZZ Repair Vagina, External Approach (ICD-10-PCS; 2016-07-12)
DX: O60.14X0 Preterm labor third trimester with preterm delivery third trimester, not applicable or unspecified (principal); O71.4 Obstetric high vaginal laceration alone; O70.1 Second degree perineal laceration during delivery; O99.62 Diseases of the digestive system complicating childbirth; O69.3XX0 Labor and delivery complicated by short cord, not applicable or unspecified; Z3A.33 33 weeks gestation of pregnancy; Z37.0 Single live birth
CPT/HCPCS: 74181; 76705; 76815; 76817; 76818; 80053; 81001; 81003; 82150; 83605; 83690; 83735; 83880; 84100; 85025; 85610; 85730; 86592; 86900; 86901; 87086; 87340; 88307; 90715; 99464; G0463; J0290; J0696; J0702; J1364; J2175; J2405; J2590; J3475; J3480; J7030; J7120

== ENCOUNTER 2016-08-06 10:00 | Outpatient (CLI) | payer OTHER ==
[~2016-08-06] VITALS: Ht 170.2 cm; Wt 86.4 kg
[2016-08-06 10:05] VITALS: BP 118/56; PULSE 16; RESP 16; Ht 170.2 cm; Wt 86.4 kg
--- NOTE | 2016-08-06 11:07 | CONS ---
Date/Time of Note Date/Time of Note DATE: 08/06/16 TIME: 10:29 Assessment/Plan Assessment/Plan Additional Assessment/Plan [facility] SUBSEQUENT OUTPATIENT CONSULTATION NOTE DATE OF CONSULTATION: 08/06/2016 PLACE OF SERVICE: [facility] ASSESSMENT AND PLAN: A very pleasant 31-year-old young lady, well known to me from her admission to [facility] in June 2016 with gallstone pancreatitis in the setting of , seen today for preoperative visit for prophylactic laparoscopic, possible open cholecystectomy as a preventative measure to reduce her risk of future gallstone pancreatitis. I explained the rational behind the recommendation, the details of the operation, risks, benefits and alternatives in detail and answered all of patient's questions to the best of my ability (no adult family members present during the discussion). Patient appeared to understand and agreed with plans. With above assessment, I recommend the followin. Pre-op H&P 2. Schedule for laparoscopic, possible open, cholecystectomy Thank you again for allowing us to participate in the care of this very pleasant lady and her wonderful family. If there are any questions, please feel free to contact me at [phone]. Updated Clinical Summary: Patient is a very pleasant 31-year-old lady on her first and with comorbidity of BMI 32, presenting with severe gallstone pancreatitis. S/p ( early) of her baby girl around 1 pm 07/12/16. COMORBIDITIES: 1. BMI of 32.0. 2. with her first child approximately 33 weeks. 3. Epilepsy. 4. Family history of hypertension. 5. Short cervix 6. S/p (early) of her baby girl around 1 pm 07/12/16. HISTORY OF PRESENT ILLNESS: The patient is a very pleasant 31-year-old young lady, well known to me from her admission to [facility] in June 2016 with gallstone pancreatitis in the setting of , seen today for preoperative visit for prophylactic laparoscopic, possible open cholecystectomy as a preventative measure to reduce her risk of future gallstone pancreatitis. No major complaints. No abd pain. No N/V/D. her baby girl. No major issues. ALLERGIES: NO KNOWN DRUG ALLERGIES. HOME MEDICATIONS: See EHR SOCIAL HISTORY: The patient lives with her family and does not report any smoking, drinking, or intravenous drug use. FAMILY HISTORY: Other than hypertension there are no other major medical, surgical or oncologic problems in the family. REVIEW OF SYSTEMS: Other than the above-mentioned, there are no other pertinent positives or pertinent negatives in a complete 14-point review of systems. PHYSICAL EXAMINATION: GENERAL: The patient appears to be a very pleasant -[place]izen [place] lady of non - descent, appearing stated age, lying in bed, obviously , but otherwise in no acute distress. BMI is 29.8 (previously June). VITAL SIGNS: AVSS (see EHR and below) HEENT: Normocephalic and atraumatic. Extraocular muscles and hearing are grossly intact bilaterally and symmetrically. Sclerae are nonicteric. Oral cavity is clear; oral mucosa appeared to be pink and moist. Dentition: fair. NECK: Supple. There is no lymphadenopathy or JVD. There is no submental, submandibular or supraclavicular lymphadenopathy. CHEST: Rises symmetrically with each breath; patient is breathing comfortably. There are no audible wheezes, rales or rhonchi on the gross exam. HEART: Pulse is regular and palpable on the right wrist. Capillary refill was normal. Carotid pulses are palpable bilaterally and symmetrically in the neck. EXTREMITIES: Lower extremities contain no pitting edema around the ankles bilaterally and symmetrically. ABDOMEN: Soft, non-tender and non-distended. There are no peritoneal signs or guarding and no evidence of organomegaly, caput medusae, engorged subcutaneous veins, or evidence of ascites. SKIN: Appears to be pink and feels warm to touch. NEUROLOGIC: Awake, alert, and follows commands appropriately. LABORATORY DATA: None for today IMAGING: None for today. In June 2016, the patient had an abdominal ultrasound that demonstrated gallstones in the gallbladder without evidence of cholecystitis. The pancreas appeared to be enlarged. Otherwise, the study was normal. She also had her routine obstetric related ultrasounds. Consultation Date/Type/Reason Admit Date/Time Initial Consult Date Exam/Review of Systems Vital Signs Vitals Vital Signs Date Time Temp Pulse Resp B/P Pulse Ox O2 Delivery O2 Flow Rate FiO2 08/06/16 10:05 98.4 16 16 118/56 97 Room Air KAREN AUGUSTINE M.D. August 06, 2016 10:39
== END 2016-08-06 16:23 | disposition home or self-care (01) ==
LOC: HPC 10:00
PROVIDERS: ATTEND Transplant Surgery
DX: Z01.818 Encounter for other preprocedural examination (principal); O26.63 Liver and biliary tract disorders in the puerperium; K83.8 Other specified diseases of biliary tract; K85.10 Biliary acute pancreatitis without necrosis or infection; O99.355 Diseases of the nervous system complicating the puerperium; G40.909 Epilepsy, unspecified, not intractable, without status epilepticus
CPT/HCPCS: G0463

== ENCOUNTER 2016-08-28 05:49 | Day surgery (SDC) | payer OTHER ==
[2016-08-27 11:03] VITALS: BMI 30.0
[~2016-08-28] VITALS: Ht 170.2 cm; Wt 84.7 kg
[2016-08-28] VITALS (12 sets, daily range): BP systolic 108–130; BP diastolic 52–71; PULSE 68–100; RESP 15–29; Ht 170.2 cm; Wt 84.7 kg
[~2016-08-28 05:49] MED LIST changes: +CEFAZOLIN 2 GM/50 ML (PMX) 50 ML IVPB ONE; +D5W-0.45 NACL + KCL 20 MEQ 1,000 ML IV ONE
[2016-08-28] MEDS ORDERED: BUPIVACAINE 0.25%/EPI (SDV) 30 ML INJ ONE (06:52)
--- NOTE | 2016-08-28 07:20 | HPN ---
Date/Time of Note Date/Time of Note DATE: 08/28/16 TIME: 07:19 Interval H&P Admission Note Pt. seen H&P reviewed: No system changes Pt. seen H&P reviewed. No system changes (I attest that I have seen and examined the patient and reviewed the operation in detail, as well as its risks , benefits and alternatives of the operation). I attest that I have seen and examined the patient and reviewed in detail the operation, and its associated risks, benefits and alternative. I have answered all the patient's questions to the best of my ability and the patient wishes to proceed. Please refer to rest of electronic medical record for additional updates. KAREN AUGUSTINE M.D. Aug 28, 2016 07:20
[2016-08-28] MEDS ORDERED: GLYCOPYRROLATE 0.4 MG INJ ONE (07:34)
[2016-08-28] MEDS ORDERED: MEPERIDINE 100 MG INJ ONE (07:34)
[2016-08-28] MEDS ORDERED: ROCURONIUM 50 MG INJ ONE (07:34)
[2016-08-28] MEDS ORDERED: LIDOCAINE 2% (SDV) 5 ML INJ ONE (07:34)
[2016-08-28] MEDS ORDERED: NEOSTIGMINE 3 MG/3 ML SYRINGE ONE (07:34)
[2016-08-28] MEDS ORDERED: PROPOFOL 20 ML ONE (07:34)
[2016-08-28] MEDS ORDERED: SUCCINYLCHOLINE CHLORIDE 100 MG/5 ML SYG IV ONE (07:34)
[2016-08-28] MEDS ORDERED: ONDANSETRON 4 MG INJ ONE (07:40)
[2016-08-28] MEDS ORDERED: CEFAZOLIN 1 GM INJ ONE (07:40)
[2016-08-28] MEDS ORDERED: METOCLOPRAMIDE 10 MG INJ ONE (07:40)
--- NOTE | 2016-08-28 09:19 | OPR ---
Date/Time of Note Date/Time of Note DATE: 08/28/16 TIME: 09:18 Operative Report Operative\Procedure Findings [facility] INPATIENT OPERATIVE NOTE PLACE OF SERVICE: [facility] DATE OF SURGERY: 08/28/2016 PREOPERATIVE DIAGNOSIS: 1. Gallstone pancreatitis June 2016 with known cholelithiasis 2. BMI of 32.0. 3. Epilepsy. 4. Family history of hypertension. 5. Short cervix 6. S/p (early) of her baby girl around 1 pm 07/12/16. POSTOPERATIVE DIAGNOSIS: 1. Gallstone pancreatitis June 2016 with known cholelithiasis 2. BMI of 32.0. 3. Epilepsy. 4. Family history of hypertension. 5. Short cervix 6. S/p (early) of her baby girl around 1 pm 07/12/16. OPERATION: 1. Laparoscopic cholecystectomy SURGEON: Karen Augustine M.D. PODIATRY DOCTOR: Emile ANESTHESIA: General endotracheal tube anesthesia ANESTHESIOLOGIST: Reza Gastelum M.D. BRIEF SUMMARY: An otherwise uncomplicated laparoscopic cholecystectomy was performed with findings of cholelithiasis. Updated Clinical Summary: Patient is a very pleasant 31-year-old lady on her first and with comorbidity of BMI 32, presenting with severe gallstone pancreatitis. S/p ( early) of her baby girl around 1 pm 07/12/16. COMORBIDITIES: 1. BMI of 32.0. 2. with her first child approximately 33 weeks. 3. Epilepsy. 4. Family history of hypertension. 5. Short cervix 6. S/p (early) of her baby girl around 1 pm 07/12/16. BRIEF HISTORY: The patient is a very pleasant 31-year-old young lady, well known to me from her admission to [facility] in June 2016 with gallstone pancreatitis in the setting of , whom we had recommended undergoing prophylactic laparoscopic, possible open cholecystectomy as a preventative measure to reduce her risk of future gallstone pancreatitis. I explained the rational behind the recommendation, the details of the operation, risks, benefits and alternatives in detail and answered all of patient's questions to the best of my ability (no adult family members present during the discussion). After careful consideration of all the risks, benefits, and alternatives, the patient appeared to understand those risks and wished to proceed with surgery. For a detailed report of my consultation with patient, please refer to my separate consultation note. Please also note that the patient was scheduled for this operation 2 days ago and we had to reschedule due to patient not able to have adult family members present with her to take her home after the operation. Additionally, the patient had her baby with her without any other adult family members to take care of the baby during the operation. For these reasons , we rescheduled her for today. STATEMENT OF THE INFORMED CONSENT: The patient appeared to understand the risks of the operation to include, but not be limited to risk of postoperative pain and scar tissue, possible infection or bleeding requiring other interventions such as opening the wound, placement of drainage catheters, or other operative interventions; possible injury to surrounding to structures including bowel, bladder, bile duct, or blood vessels, or solid organs such as liver, kidney, or pancreas requiring other interventions or procedures; possible leakage of bile from surgical clip sites, suture lines, or worse, from common bile duct injury, causing significant increase in morbidity and mortality and requiring multiple interventions including but not limited to, placement of drainage catheters, imaging studies, as well as operative interventions; possible other source of sepsis such as urinary tract infections or pneumonias, or other sources of potentially life threatening problems such as deep venous thrombus formation causing pulmonary embolism, myocardial arrhythmias and infarctions, and even . After careful consideration of all their options, the patient appeared to understand and wished to proceed with surgery. DESCRIPTION OF PROCEDURE: After obtaining informed consent, the patient was brought into the operating room and was placed in a normal supine position, where successful general endotracheal tube anesthesia was performed. The patient 's abdominal skin was prepped and draped, from the nipple line down to the level of the groins, in the usual sterile fashion. Intravenous access was already in place, and appropriately chosen and dosed prophylactic intravenous antimicrobials were administered. We then called a surgical time-out where patient's identification, date of , nature of the operation, allergies, presence of intravenous antimicrobials, presence of needed equipment, and any other concerns were reviewed and agreed upon by all members of the operating room team. We then started the operation by placing a 5-mm skin incision in the right- upper quadrant, subcostal midclavicular line, and introduced a 5-mm [employer] trocar into the peritoneal space, visualizing all the layers of the abdominal wall as we entered. Note that there was no indication of any injury to underlying structures once we entered the peritoneum. We insufflated the abdominal cavity to a maximum pressure of 15 mmHg, again, confirmed lack of any injury to underlying structures prior to visualizing the rest of the abdominal cavity. We found the fundus of the gallbladder to be visible. There was no evidence of malignancy. No evidence of calcifications or significant issues with adhesions, or other abnormalities. The liver appeared to be healthy. With this information, we went a head and placed the other trocars under direct visualization, after injecting their sites with 0.25% Marcaine with epinephrine , placing a 5-mm trocar in the umbilical midline area, a 5-mm trocar in the right anterior axillary line, and a 11-mm trocar in the midline subxiphoid region. With our instruments in place, we had excellent visualization and access to the right-upper quadrant. We then we grasped the fundus of the gallbladder and pointed up towards the right-upper quadrant. We were then able to grasp the infundibulum and pull it out in order to expose the critical triangle of Calot. We then placed our usual serosal cuts along the long axis of the gallbladder 1 cm away from its attachment to the liver bed up towards the fundus, and then joined these 2 lines under the infundibulum, taking care not to deliver any energy to underlying structures. We then performed meticulous dissection to identify and circumferentially isolate both the cystic duct and cystic artery, prior to transecting them between 2 surgical Endoclips, proximally and one distally on the cystic artery and 3 surgical endoclips proximally and one distally on the cystic duct, transecting both using cold scissors, and only after making sure that these were the only 2 structures going into the gallbladder. We then shaved the gallbladder off the gallbladder bed using cautery, and then delivered it out inside of an EndoCatch bag through the 12-mm trocar site without enlarging the fascia or contaminating the wound. Significant amount of gallstones were removed from the gallbladder prior to taking the gallbladder out of the abdominal cavity. The gallbladder was sent to Pathology for evaluation. Returning to the abdominal cavity, we ensured that there was adequate hemostasis and bile-stasis prior to removal of all of or equipment, including the pneumoperitoneum, and then reapproximating the 11-mm trocar site with one hopvfy-ta-cffon 0 Vicryl suture, followed by washing the wounds with copious amounts of normal saline, and then reapproximating the skin using interrupted 4- 0 Monocryl sutures. Light dressing was then applied. At the end of the operation, both the sponge count and needle count were reportedly correct x2. The patient tolerated the procedure without any reported complications. ESTIMATED BLOOD LOSS: Less than 10 mL. BLOOD OR BLOOD PRODUCT TRANSFUSIONS: None to my knowledge. SPECIMENS: 1. Gallbladder COMPLICATIONS: None. DISPOSITION: Recovery area. Disclaimer: Inadvertent spelling and grammatical errors are likely due to EHR/ dictation software use and do not reflect on the quality of delivered patient care. KAREN AUGUSTINE M.D. Aug 28, 2016 09:19
[2016-08-28] MEDS ORDERED: FENTAnyl 50 MCG/ML VIAL IV PRN ×2 (09:30)
[2016-08-28] MEDS ORDERED: DOCUSATE SODIUM 100 MG CAP PO PRN (09:30)
[2016-08-28] MEDS ORDERED: EPHEDrine SULFATE 50 MG/5 ML SYG IV PRN (09:30)
[2016-08-28] MEDS ORDERED: MIDAZOLAM 1 MG/ML 2 ML INJ IV PRN (09:30)
[2016-08-28] MEDS ORDERED: hydrALAzine 20 MG INJ IV PRN (09:30)
[2016-08-28] MEDS ORDERED: METOCLOPRAMIDE 10 MG INJ IV PRN (09:30)
[2016-08-28] MEDS ORDERED: BISACODYL 10 MG SUPP PR PRN (09:30)
[2016-08-28] MEDS ORDERED: morphine (1 MG/ML) 10ML SYRINGE IV PRN ×2 (09:30)
[2016-08-28] MEDS ORDERED: MEPERIDINE 25 MG INJ IV PRN (09:30)
[2016-08-28] MEDS ORDERED: HYDROmorphONE (0.2 MG/ML) 10ML SYG IV PRN ×2 (09:30)
[2016-08-28] MEDS ORDERED: LABETALOL HCL 20MG INJ IV PRN (09:30)
[2016-08-28] MEDS ORDERED: DIPHENHYDRAMINE 50 MG INJ IV PRN (09:30)
[2016-08-28] MEDS ORDERED: HYDROCODONE/APAP (5/325) TAB PO PRN ×2 (09:30)
[2016-08-28] MEDS ORDERED: ONDANSETRON 4 MG INJ IV PRN (09:30)
== END 2016-08-28 11:28 | disposition home or self-care (01) ==
LOC: SDS 05:49
PROVIDERS: ATTEND Transplant Surgery
DX: K80.10 Calculus of gallbladder with chronic cholecystitis without obstruction (principal); G40.909 Epilepsy, unspecified, not intractable, without status epilepticus; E66.9 Obesity, unspecified; Z68.32 Body mass index [BMI] 32.0-32.9, adult; Z3A.33 33 weeks gestation of pregnancy
CPT/HCPCS: 47562; 88304; J0690; J1170; J2175; J2405; J2710; J2765; J7999; Z7512; Z7610

== ENCOUNTER 2016-09-03 12:47 | Outpatient (CLI) | payer OTHER ==
[~2016-09-03] VITALS: Ht 170.2 cm; Wt 85.9 kg
[~2016-09-03 12:47] MED LIST changes: -CEFAZOLIN 2 GM/50 ML (PMX) 50 ML IVPB ONE; -D5W-0.45 NACL + KCL 20 MEQ 1,000 ML IV ONE
[2016-09-03 12:57] VITALS: BP 122/59; PULSE 63; RESP 18; Ht 170.2 cm; Wt 85.9 kg
--- NOTE | 2016-09-03 18:07 | PN ---
Date/Time of Note Date/Time of Note DATE: 09/03/16 TIME: 18:01 Assessment/Plan Assessment/Plan Assessment/Plan [facility] Progress Note Date of Service: 09/03/16 Today's Impression & Plan: Overall doing well post op without major issues. No major wound problems. With above assessment, I've recommended the following for today: 1. F/u with PCP 2. F/u with us prn Thank you again for your great care of this very pleasant patient and wonderful family. If there are any questions, please feel free to call me at [phone]. TOTAL VISIT TIME: 20 minutes of which more than half was spent in [id number] discussion with the patient, possibly including family, as well as coordination of care between multiple physicians and providers. Disclaimer: Inadvertent spelling or grammatical errors are likely due to EHR/ dictation software use and do not reflect on the overall quality of patient care. Updated Clinical Summary: Patient is a very pleasant 31-year-old lady on her first and with comorbidity of BMI 32, presenting with severe gallstone pancreatitis. S/p ( early) of her baby girl around 1 pm 07/12/16. COMORBIDITIES: 1. Gallstone pancreatitis June 2016 with known cholelithiasis 2. BMI of 32.0. 3. Epilepsy. 4. Family history of hypertension. 5. Short cervix 6. S/p (early) of her baby girl around 1 pm 07/12/16. 7. S/p an otherwise uncomplicated laparoscopic cholecystectomy at [facility] on with findings of chronic cholecystitis and cholelithiasis. Subjective: No major events or complaints; no major abd pain and under control with medications; no n/v/d; no sob or cp; + flatus; + BM and normal; + activity Objective: Vitals: See below Exam: GENERAL: On exam, the patient was sitting in a chair and appeared to be comfortable and in no acute distress. ABDOMEN: Soft, nontender and nondistended. Incisions are clean, dry and intact without any evidence of erythema, edema, discharge, or hernia. There are no peritoneal signs or guarding. SKIN: Skin appears to be pink and feels warm to touch. NEUROLOGIC: Patient is awake, alert, and follows commands appropriately. Exam/Review of Systems Vital Signs Vitals Vital Signs Date Time Temp Pulse Resp B/P Pulse Ox O2 Delivery O2 Flow Rate FiO2 09/03/16 12:57 97.8 63 18 122/59 99 Room Air KAREN AUGUSTINE M.D. Sep 03, 2016 18:07
== END 2016-09-03 16:55 | disposition home or self-care (01) ==
LOC: HPC 12:47
PROVIDERS: ATTEND Transplant Surgery
DX: K85.10 Biliary acute pancreatitis without necrosis or infection (principal); G40.909 Epilepsy, unspecified, not intractable, without status epilepticus
CPT/HCPCS: G0463